=== PATIENT | male | born 1950 | race Caucasian/White ===

== ENCOUNTER → 2020-06-06 12:10 | Outpatient (CLI) | payer OTHER, SELFPAY ==
[2020-06-06 12:43] LABS: Add Manual Diff / Slide Review NO; Basophils Absolute Auto 100 /uL (0-100); Basophils Percent Auto 1.8 % (0-2); Eosinophils Absolute Auto 200 /uL (0-450); Eosinophils Percent Auto 2.1 % (2-4); Lymphocytes Absolute Auto 1100 /uL (1100-4500); Lymphocytes Percent Auto 14.4 % (25-40); Mean Corpuscular HGB Conc 33.3 % (30-36); Mean Corpuscular Hemoglobin 33.1 PG (26-34); Mean Corpuscular Volume 99.3 fL (80-100); Monocytes Absolute Auto 600 /uL (0-900); Monocytes Percent Auto 8.2 % (3-14); Neutrophils Absolute Auto 5600 /uL (1500-7000); Neutrophils Percent Auto 73.5 % (50-75); Platelet Count 292 X10^3/uL (150-400); Red Blood Cell Count 4.83 X10^6/uL (4.5-5.9); Red Cell Distribution Width 13.5 % (11.6-14.8); White Blood Cell Count 7.6 X10^3/uL (4.5-11.0)
[2020-06-06 14:03] LABS: COVID19 -Nasal RAPID Negative (Negative)
== END ==
PROVIDERS: Physician Assistant; Family Provider Family Medicine; PCP Family Medicine; Referring Provider Orthopaedic Surgery; Visit Provider Orthopaedic Surgery
DX: Z01.818 Encounter for other preprocedural examination (principal); Z01.812 Encounter for preprocedural laboratory examination; Z11.59 Encounter for screening for other viral diseases
CPT/HCPCS: 36415; 85025; 87635; 93005; 93010

== ENCOUNTER 2020-06-08 12:41 | Day surgery (SDC) | payer OTHER, SELFPAY ==
[2020-06-08] VITALS (19 sets, daily range): BP systolic 108–144; BP diastolic 60–93; PULSE 52–78; RESP 10–18; TEMP 35.7–36.8; O2SAT 93–100; BMI 35.9
--- NOTE | 2020-06-08 12:49 | DI.RAD.S_ITS ---
PROCEDURE: XR PELVIS 1-2V INDICATIONS: left CYNDIE TECHNIQUE: 1 view of the lower pelvis acquired. COMPARISON: [facility] [place], , HIP INJECTION, 05/02/2020, 9:25. FINDINGS: Bones: Patient is status post recent left hip arthroplasty, with hardware components in expected positions. The hip joint appears congruent. The visualized bony structures appear intact. Right hip arthroplasty is intact as well. Soft tissues: Overlying postoperative changes are noted. No suspicious soft tissue densities. IMPRESSION: Status post left hip arthroplasty. Dictated by: Hellen Lopez M.D. on 06/08/2020 at 17:58 Approved by: Hellen Lopez M.D. on 06/08/2020 at 17:59
[2020-06-08] MEDS: CELECOXIB 200 MG CAPSULE PO (13:23)
[2020-06-08] MEDS: ACETAMINOPHEN 325 MG TABLET 975 MG PO (13:24)
[2020-06-08] MEDS: PREGABALIN 75 MG CAPSULE PO (13:24)
[2020-06-08] MEDS: LACTATED RINGERS 1,000 ML 42 ML IV ×2 (13:25→16:41)
--- NOTE | 2020-06-08 15:09 | PM.PREOP ---
Pre-operative Note COVID-19 COVID-19 status: Negative Result date/Date tested (Pos, Neg/Pending): 06/07/20 Interval Note History & Physical reviewed/Exam performed by Physician: Yes Changes to H&P: No
[2020-06-08] MEDS: CEFAZOLIN 2 GM/100 ML FROZ.PIGGY IV ×2 (15:35→23:43)
[2020-06-08] MEDS: CEFAZOLIN VIAL 1 GM in SODIUM CHLORIDE 0.9% 100 ML 200 ML IV (15:45)
[2020-06-08] MEDS: TRANEXAMIC ACID 1,000 MG VIAL 2000 MG INJ ×2 (16:00→17:00)
--- NOTE | 2020-06-08 16:14 | SUR.OPER ---
Lateral on padded OR bed. Gel axillary roll. Arms secured on padded armboard with pillow supporting top arm. Padded hip positioner braces x4 - anterior and posterior chest and pelvis. Additional gel pad used anterior pelvis. Gel pad under bottom leg from knee to foot and secured with tape over sheet.
[2020-06-08] MEDS: ROPIVACAINE 0.5% PF 5 MG/ML 20ML VIAL 60 ML INJ (16:34)
[2020-06-08] MEDS: MORPHINE 4 MG/ML INJ INJ (16:34)
[2020-06-08] MEDS: KETOROLAC 30 MG/ML VIAL IV (16:35)
--- NOTE | 2020-06-08 17:18 | PM.OP.1 ---
Operative Date/Time/Diagnoses Date of procedure: 06/08/20 Time of procedure: 17:18 Pre-op diagnosis: Left hip degenerative joint disease Post-op diagnosis: same Procedure & Clinicians Procedure: Left total hip arthroplasty (CPT code 80372 with psychiatric technician assistant) Same procedure as scheduled: Yes Indications: Patient is an 69-year-old male with severe left hip DJD. The patient has pain with activities and at rest, limited ambulation and activity tolerance, difficulties with ADLs, and failure of conservative treatment. We have discussed the nature of condition, treatment options, risks and benefits, and patient elects to proceed with total hip arthroplasty and gives informed consent. Surgeon: [facility] Care Coordinator: Remigio Baker Anesthesia Type: General and Spinal Operative Notes Closure Type: primary Specimen(s): none sent Prosthetic devices, grafts, tissues, transplants, or devices: Acetabulum: Tapia and Nephew R3 acetabular component size 58 mm Femoral component: Tapia [employer] Nephew Anthology stem size 12 with high offset Femoral head: 36 mm + 0 cobalt chrome Estimated Blood Loss (mL): 150 Blood products transfused: none Procedure in detail: After satisfaction induction of anesthetic, and administration of IV antibiotics, the patient was positioned in the lateral decubitus position with all bony prominences well padded and pelvic position secured using a hip district manager in training positioning device. Left hip and lower extremity prepped and draped in the usual sterile fashion, 1st dose of intravenous tranexamic acid was administered, then a longitudinal incision was created centered over the greater trochanter and carried sharply through the skin and subcutaneous tissues down to the fascia lavon which was divided longitudinally and retracted with a Charnley retractor. External rotators visualize, cut, tagged, and retracted posteriorly, then the capsule was cut in a T-type fashion with the corners tagged and retracted. Hip was dislocated and femoral neck cut made according to preoperative templating. Acetabular retractors then placed, and the acetabular labrum and osteophytes were excised. The acetabulum was then sequentially reamed to 57 mm with an excellent circumferential ream and fit with the trial. The trial component was removed and a permanent size 58 mm Tapia and Nephew R3 acetabular component was selected, positioned, and impacted with satisfactory position and fixation achieved. Permanent liner was then inserted with the elevated lip directed posteriorly. Soft tissue then removed off the lateral femoral neck in the lateral neck was entered using a box osteotome. T-handled reamers placed down the canal followed by sequential broaching to 12 with the final broach left in place for trial reduction which demonstrated excellent leg length, range of motion, and stability characteristics with a 36 mm +0 trial ball and high offset neck combination. The trial and broach were removed, and a permanent size 12 high offset Tapia and Nephew Anthology stem was selected and inserted with excellent position and fixation achieved. Another trial reduction yielded the above characteristics so the trial ball was exchanged for a permanent 36 mm +0 cobalt chrome ball. The hip was irrigated and reduced and excellent leg length range of motion and stability characteristics were achieved and maintained. Periarticular tissues were infiltrated with ropivacaine, morphine, and Toradol. The hip was copiously irrigated, and the capsule repaired with #2 Ethibond, and the piriformis was repaired back to the greater trochanter with the same. Fascia lavon closed with interrupted #1 Ethibond sutures, and the subcutaneous tissues were closed in 2 layers of 0 Vicryl and 2 0 Vicryl. Skin was closed with zip lock skin closure and sterile dressings applied. Second dose of tranexamic acid was administered intravenously, and the anesthetic was terminated. Complications: none Post-operative Condition: stable Disposition: PACU Plan for aftercare: Patient will be admitted to the acute care garibay, and anticipate discharge on postop day 1 with follow-up in office in 10-14 days. Outpatient physical therapy will be arranged and patient will continue to observe posterior hip precautions. Patient will continue use aspirin for DVT prophylaxis postop.
[2020-06-08] MEDS: fentaNYL 100 MCG/2 ML INJ IV ×3 (17:53→18:15)
[2020-06-08] MEDS: OXYCODONE IR 5 MG TABLET PO ×3 (17:54→23:42)
--- NOTE | 2020-06-08 18:59 | SUR.PHASEI ---
1849 to room 217, bed down and locked, call lighte within reach, VSS, SCDs on. Pt alert, oriented, present. No nausea, pain 2/10 prior to transfer. No questions from patient or staff. Clothing bag, cane, and CPAP to the room.
[2020-06-08] MEDS: LACTATED RINGERS 1,000 ML 125 ML IV (19:09)
[2020-06-08] MEDS: GABAPENTIN 300 MG CAPSULE PO (20:37)
[2020-06-08] MEDS: ASPIRIN EC 81 MG TABLET PO (20:37)
[2020-06-08] MEDS: ACETAMINOPHEN 325 MG TABLET 650 MG PO (20:37)
[2020-06-08] MEDS: DOCUSATE 100 MG CAPSULE PO (20:38)
[2020-06-09] MEDS: hydrOXYzine pamoate 25 MG CAPSULE PO (01:03)
[2020-06-09] MEDS: HYDROCODONE/ACET 5/325 TABLET 1 TAB PO (01:40)
[2020-06-09 06:00] LABS: Hematocrit 42.5 % (41-53)
[2020-06-09 06:12] VITALS: BP 132/67; PULSE 59; RESP 16; TEMP 36.2; O2SAT 95
[2020-06-09] MEDS: OXYCODONE IR 5 MG TABLET PO (06:20)
--- NOTE | 2020-06-09 07:47 | P.PN_ITS ---
Subjective Subjective Date Patient Seen: 06/09/20 Time Patient Seen: 07:47 Interval history: POD #1 s/p L CYNDIE with Dr. Oliver. He has been on Percocet pre- operatively and does not have good pain control with Oxycodone 5 mg. He has not been up with PT yet today. Exam Vital Signs (past 8 hours): - 06/09/20 06:12 Temperature 97.2 F L Pulse Rate 59 L Respiratory Rate 16 Blood Pressure 132/67 Pulse Oximetry 95 Oxygen Delivery Method Room Air Oxygen Flow Rate 0 Narrative Exam Narrative: Patient lying in bed in NAD. He is alert and oriented X3. Calves are soft, compressible, and nontender bilaterally. SILT throughout BLEs. SCDs on and functioning. He is able to actively dorsiflex and plantarflex. Objective Labs Result Diagrams: 06/09/20 05:45 Labs: Laboratory Results - last 24 hr 06/09/20 05:45 Hgb 14.0 Hct 42.5 PFSH Surgical History H/O total hip arthroplasty Social History household members: spouse Smoking Status: Never smoker alcohol intake: current Assessment & Plan Post-op Postoperative Procedures: Procedures Operation Date: 06/08/20 14:45 Actual Procedures Side Surgeon p Total Hip Arthroplasty Left Wilfrido Oliver MD Patient will mobilize with PT today. Will increase pain medication to Oxycodone 10 mg. Continue ASA 81 mg BID for VTE prophylaxis. If patient is mobilizing safely with adequate pain control he can DC home today. Quality VTE Deep Vein Thrombosis/Pulmonary Embolism Present on Admission: No
[2020-06-09 08:10] VITALS: BP 125/79; PULSE 57; RESP 16; TEMP 36.4; O2SAT 98
[2020-06-09] MEDS: OXYCODONE IR 10 MG TABLET PO ×3 (08:56→14:57)
[2020-06-09] MEDS: ASPIRIN EC 81 MG TABLET PO (08:56)
[2020-06-09] MEDS: ACETAMINOPHEN 325 MG TABLET 650 MG PO ×2 (08:57→14:57)
[2020-06-09] MEDS: DOCUSATE 100 MG CAPSULE PO (08:57)
--- NOTE | 2020-06-09 10:04 | PT.IIE ---
Current Diagnoses Unilateral primary osteoarthritis, left hip (06/08/20) Surgery Performed Operation Date: 06/08/20 14:45 Actual Procedures p Total Hip Arthroplasty(Left) - Wilfrido Oliver MD Surgical History (Last Reviewed 06/09/20 @ 12:50 by Bridgett Lynne PA-C) H/O total hip arthroplasty Physical Therapy Inpatient Evaluation/Re-Eval M1 PT/OT-IP Prior Functional Status Start: 06/09/20 12:41 Freq: NEEDED Status: Active Protocol: Document 06/09/20 10:04 AB (Rec: 06/09/20 12:55 AB [email or web address]) Medical Review Prior Functional Status Medical History Reviewed Yes Communication able to make needs known Mobility and Gait Pt stated that he is modified independent with all mobilities and ambulation without AD but occasionally using SPC depending on pain level but has been using SPC more consistenly for the passed 2-3 weeks Social History Household Members spouse Living Arrangements House Number of Floors (Floors) One Floor Number of Stairs To Enter/Railing? no steps to enter Home Environment High Toilet,Walk in Shower,Tub /Shower Home Equipment Front Wheel Walker,Straight Cane,Raised Toilet Seat Without Armrests Additional Social History Comment pt stated that spouse will not be able to physically assist pt much wendy be getting in/out of the R side of the bed M2 PT-IP Current Condition Start: 06/09/20 12:41 Freq: NEEDED Status: Active Protocol: Document 06/09/20 10:04 AB (Rec: 06/09/20 12:55 AB [email or web address]) Physical Therapy Current Condition Current Condition Evaluation Date 06/09/20 Treatment Diagnosis s/p L CYNDIE posterior approach; difficulty in walking Onset Date 06/08/20 Precautions Posterior Hip Precautions No Hip Flexion > 90 degrees,No Hip Internal Rotation,No Hip Adduction Weight Bearing Status Weight Bearing Status Weight Bear as Tolerated Allowed Weight Bearing Amount (enter % LLE WBAT or #) (%) M3 PT-IP Subjective Start: 06/09/20 12:41 Freq: NEEDED Status: Active Protocol: Document 06/09/20 10:04 AB (Rec: 06/09/20 12:55 AB [email or web address]) Subjective Physical Therapy Visit Type Type Initial Evaluation Visit Start Time 10:04 Visit Stop Time 11:02 Total Visit Minutes 58 Number of MANAGER INTRANET Visits 0 Physical Therapy Visit Comments Patient Comments pt is agreeable to do PT Therapy Pain Assessment Pain When Pain Assessed At Rest Pain Present Pain Present Pain Reported Location Left Hip Intensity 6 Scale Used Numeric (0 - 10) Pain Management Techniques Re-positioning,Timing of Activity with Medications M4 PT-IP Mobility and Gait Start: 06/09/20 12:41 Freq: NEEDED Status: Active Protocol: Document 06/09/20 10:04 AB (Rec: 06/09/20 12:55 AB [email or web address]) PT-Bed Mobility Assessment Supine to Sit Supine to Sit Maximum Assistance,1 Person Assistance PT-Transfer Assessment Sit to and From Stand Sit to and from Stand Contact Guard Assistance,1 Person Assistance,Use of Upper Extremities Equipment Transfer Assistive Device Gait Belt,Front Wheeled Walker Orthotic/Prosthetic Devices or Brace: No Transfers Transfer Destination Chair,Toilet Transfer Technique ambulated using FWW Transfer Ability Level of Assist Contact Guard Assistance,1 Person Assistance,Use of Upper Extremities Comments Mobility Comments educated pt with L posterior hip precautions. completed supine to sit max A and max cues. completed sit to stand from EOB CGA and cues to maintain hip precautions. ambulated in room using FWW towards the chair CGA. completed sit to stand from chair CGA and ambulated using FWW to the toilet CGA. pt was able to maintain standing using FWW for support while using the toilet CGA. pt ambulated out of the toilet. ambulated in room ~ 35 ft and agreed to sit up on chair. positioned on chair. call light and table placed within reach. pt verbalized concerns about going home since spouse is not going to be able to assist him much and also stated that he had difficulty after he had his R hip done ~4 years ago. set up caregiver training with pt and stated that spouse will come is after 1 pm later today for training. informed nurse Gait Assessment Gait Gait Assistance Required: Contact Guard Assist Distance (Feet) 35 Able to Maintain Weight Bearing Status Yes During Gait Assistive Devices Assistive Device Gait Belt,Front Wheeled Walker Orthotic/Prosthetic Devices or Brace: No Gait Deviations General Gait Pattern Antalgic,Decreased Stride Length,Decreased Feet Clearance,Step-to Gait Factors Limiting Gait Function Factors Limiting Gait Function Decreased Activity Tolerance, Decreased Sensation,Decreased Strength,Limited Range of Motion,Pain,Poor Balance,Poor Safety Awareness Comments Gait Comments pls refer to mobility section for details PT-Balance Assessment Sitting Balance and Reactions Static Sitting Balance Ability Good Dynamic Sitting Balance Ability Good Standing Balance and Reactions Static Standing Balance Ability Fair Dynamic Standing Balance Ability Fair Device Used FWW M5 PT-IP Objective Assessments Start: 06/09/20 12:41 Freq: NEEDED Status: Active Protocol: Document 06/09/20 10:04 AB (Rec: 06/09/20 12:55 AB [email or web address]) Orientation Orientation/Cognition Level of Alertness Alert Orientation Name,Age,Birthday,Month,Date, Year,Day of Week,Place, Situation Language Function Ability No Deficits Noted Safety Awareness Decreased Safety Awareness Memory Description Short Term Impaired Gross Range of Motion Lower Extremity ROM Assessment Within Functional Limits Strength Lower Extremity Strength Assessment Left Impaired Hip 3+/5 Knee 4-/5 Sensation Assessment Sensation Gross Sensation Right LE Impaired,Left LE Impaired Light Touch Impaired Proprioception (Position) Impaired Comments Sensation Comments B feet neuropathy per pt and has decrease sensation Muscle Tone Muscle Tone WNL Yes M6 PT-IP Treatment Start: 06/09/20 12:41 Freq: NEEDED Status: Active Protocol: Document 06/09/20 10:04 AB (Rec: 06/09/20 12:55 AB [email or web address]) Physical Therapy Treatment Education Education Provided Precautions,Weight Bearing Status,Post-Op Packet,Safety M7 PT-IP Assessment and Plan Start: 06/09/20 12:41 Freq: NEEDED Status: Active Protocol: Document 06/09/20 10:04 AB (Rec: 06/09/20 12:55 AB [email or web address]) PT Summary Assessment and Plan Potential Rehabilitation Potential Good Status of Condition at Evaluation Stable Summary Impairments Pain,ROM,Strength,Balance, Sensation,Cognition,Bed Mobility,Transfers,Gait, Activity Tolerance Assessment Summary pt requiring CGA with mobiltiy but required max A for bed mobility. caregiver training set up for ~ 130 today with pt and spouse. d/c plan is dependent if spouse will be able to assist pt safely. will continue to assess. Goals Bed Mobility Goal Independent Transfer Goal Independent,Front Wheeled Walker Gait Goal Independent,Front Wheel Walker Gait Distance 200 Days to Meet Goals 5 Frequency of Treatment Frequency Of Treatment Twice a Day Treatment Plan Physical Therapy Treatment Plan Bed Mobility Training,Transfer Training,Gait Training, Therapeutic Exercise,Balance Retraining,Post Op Education, Discharge Planning,Hot or Cold Pack,Neuromuscular Re-ed, Coordination Retraining,Manual Therapy Recommendations To Nursing Amount of Assist Needed 1 Person Assist Discharge Recommendations PT Discharge Recommendations Home with Assistance, Outpatient PT Transportation Needs at Discharge Private Vehicle
--- NOTE | 2020-06-09 11:14 | CM.IDA ---
Initial DCP Assessment Note Pt is a 69 yo male, resident of [place], now POD#1 from left hip surgery w/ Dr Oliver PCP: Hudson Moran Payer: [employer] Reviewed chart, DC order from Ortho has already been initiated this morning. Met w/patient to introduce role. Patient is awaiting his morning therapy session. Patient is indp. at baseline and has planned to return home w/his spouse to assist as needed. Patient feels confident at this time to return home w/family to assist and denies needs from this FACILITIES MANAGER this morning. No needs expected from DC planning team although will remain available in case this changes today. Nazanin Holcomb, FACILITIES MANAGER
--- NOTE | 2020-06-09 14:18 | PT.IPTN ---
Current Diagnoses Unilateral primary osteoarthritis, left hip (06/08/20) Surgery Performed Operation Date: 06/08/20 14:45 Actual Procedures p Total Hip Arthroplasty(Left) - Wilfrido Oliver MD Physical Therapy Treatment Note M2 PT-IP Current Condition Start: 06/09/20 12:41 Freq: NEEDED Status: Active Protocol: Document 06/09/20 10:04 AB (Rec: 06/09/20 12:55 AB [email or web address]) Physical Therapy Current Condition Current Condition Evaluation Date 06/09/20 Treatment Diagnosis s/p L CYNDIE posterior approach; difficulty in walking Onset Date 06/08/20 Precautions Posterior Hip Precautions No Hip Flexion > 90 degrees,No Hip Internal Rotation,No Hip Adduction Weight Bearing Status Weight Bearing Status Weight Bear as Tolerated Allowed Weight Bearing Amount (enter % LLE WBAT or #) (%) M3 PT-IP Subjective Start: 06/09/20 12:41 Freq: NEEDED Status: Active Protocol: Document 06/09/20 13:38 KS (Rec: 06/09/20 16:53 KS [id number]) Subjective Physical Therapy Visit Type Type Treatment Note Visit Start Time 13:38 Visit Stop Time 14:18 Total Visit Minutes 40 Notes Pts present for caregiver training. Number of PARTNER MARKETING MANAGER Visits 1 Physical Therapy Visit Comments Patient Comments pt is agreeable to do PT Therapy Pain Assessment Pain When Pain Assessed At Rest Pain Present Pain Present Pain Reported Location Left Hip Scale Used not quantified Description Aching,Pulling,Tightness Pain Behaviors Guarding,Holding Area, Restlessness Pain Management Techniques Re-positioning,Timing of Activity with Medications M4 PT-IP Mobility and Gait Start: 06/09/20 12:41 Freq: NEEDED Status: Active Protocol: Document 06/09/20 13:38 KS (Rec: 06/09/20 16:53 KS [id number]) PT-Bed Mobility Assessment Supine to Sit Supine to Sit Moderate Assistance,1 Person Assistance Sit to Supine Sit to Supine Minimal Assistance,1 Person Assistance Scooting Scooting to Edge of Bed Contact Guard Assistance PT-Transfer Assessment Sit to and From Stand Sit to and from Stand Contact Guard Assistance,1 Person Assistance,Use of Upper Extremities Equipment Transfer Assistive Device Gait Belt,Front Wheeled Walker Orthotic/Prosthetic Devices or Brace: No Transfers Transfer Destination Bed,Chair Transfer Technique ambulated using FWW Transfer Ability Level of Assist Contact Guard Assistance,1 Person Assistance,Use of Upper Extremities Comments Mobility Comments Pt in chair upon arrival from therapy w/ in room for caregiver training. Pt able to recall 3/3 hip precautions. CGA and cues for sit<>Stand w/ FWW. Pt then ambulated ~50 ft w/ FWW and SBA. He then returned to bed, pts provided pt w/ CGA for stand<> sit on bed and sit<>sup for LE assistance into bed. Pts provided Mod A for sup<>sit from flat bed and CGA for sit< >stand and ambulation w/ FWW to chair. Pt transferred to chair SBA. Pt and state they feel safe to go home today and to provide assist. Pt and confirm there are no steps at home and they have FWW for home use and outpatient therapy to begin in one week. Gait Assessment Gait Gait Assistance Required: Contact Guard Assist Distance (Feet) 50 Able to Maintain Weight Bearing Status Yes During Gait Assistive Devices Assistive Device Gait Belt,Front Wheeled Walker Orthotic/Prosthetic Devices or Brace: No Gait Deviations General Gait Pattern Antalgic,Decreased Stride Length,Decreased Feet Clearance,Step-to Gait Factors Limiting Gait Function Factors Limiting Gait Function Decreased Activity Tolerance, Decreased Sensation,Decreased Strength,Limited Range of Motion,Pain,Poor Balance,Poor Safety Awareness Comments Gait Comments pls refer to mobility section for details Stair Climbing Assessment Comments Stair Climbing Comments Not assessed, no stairs at home. PT-Balance Assessment Sitting Balance and Reactions Static Sitting Balance Ability Good Dynamic Sitting Balance Ability Good Standing Balance and Reactions Static Standing Balance Ability Fair Dynamic Standing Balance Ability Fair Device Used FWW M5 PT-IP Objective Assessments Start: 06/09/20 12:41 Freq: NEEDED Status: Active Protocol: Document 06/09/20 10:04 AB (Rec: 06/09/20 12:55 AB [email or web address]) Orientation Orientation/Cognition Level of Alertness Alert Orientation Name,Age,Birthday,Month,Date, Year,Day of Week,Place, Situation Language Function Ability No Deficits Noted Safety Awareness Decreased Safety Awareness Memory Description Short Term Impaired Gross Range of Motion Lower Extremity ROM Assessment Within Functional Limits Strength Lower Extremity Strength Assessment Left Impaired Hip 3+/5 Knee 4-/5 Sensation Assessment Sensation Gross Sensation Right LE Impaired,Left LE Impaired Light Touch Impaired Proprioception (Position) Impaired Comments Sensation Comments B feet neuropathy per pt and has decrease sensation Muscle Tone Muscle Tone WNL Yes M6 PT-IP Treatment Start: 06/09/20 12:41 Freq: NEEDED Status: Active Protocol: Document 06/09/20 13:38 KS (Rec: 06/09/20 16:53 KS [id number]) Physical Therapy Treatment Exercises Exercises Ankle Pumps,Gluteal Sets,Quad Sets Education Education Provided Precautions,Weight Bearing Status,Post-Op Packet,Safety Other Treatments Other Treatment Performed Completed caregiver training w / pts who was able to provide appropriate assist and cues for bed mobility, transfers, and ambulation. M7 PT-IP Assessment and Plan Start: 06/09/20 12:41 Freq: NEEDED Status: Active Protocol: Document 06/09/20 13:38 KS (Rec: 06/09/20 16:53 KS [id number]) PT Summary Assessment and Plan Potential Rehabilitation Potential Good Status of Condition at Evaluation Stable Summary Impairments Pain,ROM,Strength,Balance, Sensation,Cognition,Bed Mobility,Transfers,Gait, Activity Tolerance Progress Towards Goals Progressing Toward Goals Assessment Summary Completed caregiver training w / pts who was able to provide appropriate amount of assist throughout treatment. Pt Min to Mod A for bed mobility, CGA for transfers, SBA for ambulation. Pt had good saefety awareness and was able to recall 3/3 precautions. Pt will benefit from outpatient rehab to improve strength and ROM. Goals Bed Mobility Goal Independent Transfer Goal Independent,Front Wheeled Walker Gait Goal Independent,Front Wheel Walker Gait Distance 200 Days to Meet Goals 5 Frequency of Treatment Frequency Of Treatment Twice a Day Treatment Plan Physical Therapy Treatment Plan Bed Mobility Training,Transfer Training,Gait Training, Therapeutic Exercise,Balance Retraining,Post Op Education, Discharge Planning,Hot or Cold Pack,Neuromuscular Re-ed, Coordination Retraining,Manual Therapy Recommendations To Nursing Amount of Assist Needed 1 Person Assist Discharge Recommendations PT Discharge Recommendations Home with Assistance, Outpatient PT Transportation Needs at Discharge Private Vehicle
== END 2020-06-09 15:10 | disposition home or self-care (01) ==
LOC: OR 12:42 → AC 12:42
PROVIDERS: Family Provider Family Medicine; PCP Family Medicine; Referring Provider Orthopaedic Surgery; Visit Provider Orthopaedic Surgery
PROC: 0SRB0JZ Replacement of Left Hip Joint with Synthetic Substitute, Open Approach (ICD-10-PCS; CPT 27130; principal; 2020-06-08 14:45)
DX: M16.12 Unilateral primary osteoarthritis, left hip (principal); G47.33 Obstructive sleep apnea (adult) (pediatric)
CPT/HCPCS: 27130; 36415; 72170; 85014; 85018; 97110; 97116; 97161; 97530; C1776; J0690; J1100; J1885; J2250; J2270; J2405; J2704; J3010